=== PATIENT | female | born 1995 | race Asian ===

== ENCOUNTER 2018-07-06 05:10 | Inpatient (IN) | payer BC ==
[~2018-07-06] VITALS: Ht 152.4 cm; Wt 78.5 kg
[2018-07-06] MEDS ORDERED: Verotin-Gr Cap1 EACH PO (05:23)
[2018-07-06 06:05] LABS: BASOPHILS ABSOLUTE AUTO 0.04 K/mm3 (0.00-0.23); BASOPHILS PERCENT AUTO 1 % (0-2); EOSINOPHILS ABSOLUTE AUTO 0.19 K/mm3 (0.00-0.68); EOSINOPHILS PERCENT AUTO 2 % (0-6); Hematocrit 40.2 % (33.0-51.0); IMMATURE GRAN ABSOLUTE AUTO 0.05 K/mm3 (0.00-0.10); IMMATURE GRAN PERCENT AUTO 1 % (0-1); LYMPHOCYTES ABSOLUTE AUTO 2.48 K/mm3 (0.84-5.20); LYMPHOCYTES PERCENT AUTO 29 % (21-46); MONOCYTES ABSOLUTE AUTO 0.84 K/mm3 (0.16-1.47); MONOCYTES PERCENT AUTO 10 % (4-13); Mean Corpuscular HGB 28.1 pg (26.0-34.0); Mean Corpuscular HGB Conc 32.3 g/dL (31.5-36.5); Mean Corpuscular Volume 87 fL (80-100); Mean Platelet Volume 10.6 fL (9.1-12.4); NEUTROPHILS ABSOLUTE AUTO 5.05 K/mm3 (1.96-9.15); NEUTROPHILS PERCENT AUTO 58 % (41-73); Platelet Count 267 K/mm3 (150-400); RDW Coefficient Variation 13.8 % (11.7-14.2); RDW Standard Deviation 43.5 fL (35.1-46.3); Red Blood Cell Count 4.62 M/mm3 (3.80-5.20); White Blood Cell Count 8.65 K/mm3 (4.00-11.30)
[2018-07-06 09:10] LABS: PCO2 Cord - Arterial 57.6 mmHg (40-50); PO2 Cord - Arterial 11.4 mmHg (16-20)
[2018-07-06 09:15] LABS: PCO2 Cord - Venous 48.3 mmHg (40-50); PO2 Cord - Venous 21.9 mmHg (28-32); pH Umbilical Cord - Venous 7.34 (7.26-7.35)
[2018-07-07 09:09] LABS: Hematocrit 27.8 % (33.0-51.0); Hemoglobin 9.2 g/dL (11.5-16.0); Mean Corpuscular HGB 28.8 pg (26.0-34.0); Mean Corpuscular HGB Conc 33.1 g/dL (31.5-36.5); Mean Corpuscular Volume 87 fL (80-100); Mean Platelet Volume 10.3 fL (9.1-12.4); Platelet Count 194 K/mm3 (150-400); RDW Coefficient Variation 13.7 % (11.7-14.2); RDW Standard Deviation 42.7 fL (35.1-46.3); White Blood Cell Count 13.87 K/mm3 (4.00-11.30)
[2018-07-09] MEDS ORDERED: IBUP800 PO (09:39)
[2018-07-09] MEDS ORDERED: Percocet 5-3251 EACH PO (09:39)
== END 2018-07-09 11:51 | disposition home or self-care (01) | DRG 788 ==
LOC: BC 05:10
PROVIDERS: Nurse Practitioner Obstetrics & Gynecology; Obstetrics & Gynecology
PROC: 10D00Z1 Extraction of Products of Conception, Low, Open Approach (ICD-10-PCS; principal; 2018-07-06 08:15)
DX: O32.1XX0 Maternal care for breech presentation, not applicable or unspecified (principal); Z3A.39 39 weeks gestation of pregnancy; Z37.0 Single live birth
CPT/HCPCS: 36415; 82803; 85025; 85027; 86850; 86900; 86901; J0690; J0694; J1100; J1885; J2270; J2370; J2405; J2590; J2765; J3010; J7120

== ENCOUNTER 2020-08-11 10:00 | Day surgery (SDC) | payer BC ==
[~2020-08-11] VITALS: Ht 154.9 cm; Wt 57.7 kg
[~2020-08-11 10:00] MED LIST: IBUP800 PO; OMEP20ER PO; Percocet 5-3251 EACH PO; Verotin-Gr Cap1 EACH PO
--- NOTE | 2020-08-11 12:48 | NUR ---
08/11/20 1248 Criss Garcia FLUID DEFICIT AT END OF HYSTEROSCOPY OF 900ML.
--- NOTE | 2020-08-11 13:51 | NUR ---
08/11/20 1351 ROBERTA SCHULTE PATIENT DENIES N&V PRIOR TO DISCHARGE, IV REMOVED, VS STABLE, PATIENT NOW REPORTING NAUSEA, STATING "I FEEL LIKE I AM GOING TO THROW UP", DR CUNNINGHAM NOTIFIED AND ORDERS OBNTAINED FOR 4 MG PO ZOFRAN ODT, MEDICATION ADMINISTERED WITH RESOLVE OF NAUSEA, PATIENT DISCHARGE WITH A PRESCRIPTION FOR PHENERGAN PER DR. PERERA
== END 2020-08-11 13:52 | disposition home or self-care (01) ==
LOC: ORSCSDS 10:00
PROVIDERS: Obstetrics & Gynecology
PROC: 0UDB8ZX Extraction of Endometrium, Via Natural or Artificial Opening Endoscopic, Diagnostic (ICD-10-PCS; principal; 2020-08-11 11:15)
DX: N85.00 Endometrial hyperplasia, unspecified (principal); N92.0 Excessive and frequent menstruation with regular cycle; N94.6 Dysmenorrhea, unspecified; K21.9 Gastro-esophageal reflux disease without esophagitis; Z79.899 Other long term (current) drug therapy
CPT/HCPCS: 88305; A9270; J0690; J1100; J2405; J2704; J3010; J7120